=== PATIENT | female | born 1980 | race Caucasian/White ===

== ENCOUNTER → 2022-09-16 15:28 | Outpatient (CLI) | payer OTHER, SELFPAY ==
--- NOTE | 2022-09-16 15:29 | DI.MG.S_ITS ---
BILATERAL DIGITAL SCREENING MAMMOGRAM 3D/2D WITH CAD: 09/16/2022 CLINICAL: Routine screening. Baseline exam. Family history of breast cancer. No prior exams were available for comparison. Both breasts are heterogeneously dense, which may obscure small masses (category c / 51-75% glandular tissue). Current study was also evaluated with a Computer Aided Detection (CAD) system. No significant masses, calcifications, or other findings are seen in either breast. IMPRESSION: NEGATIVE There is no mammographic evidence of malignancy. A 1 year screening mammogram is recommended. Based on Tyrer-Cuzick model (a risk assessment model), the patient's lifetime risk is 21.6% and her 10 year risk is 2.8%. If a patient has an elevated risk, a more comprehensive evaluation should be considered and/or a referral to a genetic counselor. The [place] [employer], [employer] [place], and NCCN Guidelines advise the consideration of Breast MRI as an adjunct to screening mammography in patients whose Lifetime risk to develop breast cancer is 20% or higher. This exam was interpreted at Station ID: [id number]. NOTE: For mammograms, a report in lay terms will be sent to the patient. Approximately 15% of breast malignancies will not be visualized mammographically. In the management of a palpable breast mass, a negative mammogram must not discourage biopsy of a clinically suspicious lesion. Electronically Signed By: Dilcia gibson/maddy:09/16/2022 17:41:41 letter sent: Normal Exam ACR BI-RADS Category 1: Negative 3341F
== END ==
PROVIDERS: PCP Family Medicine; Referring Provider Family Medicine; Visit Provider Family Medicine
DX: Z12.31 Encounter for screening mammogram for malignant neoplasm of breast (principal); Z80.3 Family history of malignant neoplasm of breast
CPT/HCPCS: 77063; 77067

== ENCOUNTER → 2023-10-18 15:20 | Outpatient (CLI) | payer OTHER, SELFPAY ==
--- NOTE | 2023-10-18 | DI.MG.S_ITS ---
BILATERAL DIGITAL SCREENING MAMMOGRAM 3D/2D WITH CAD: 10/18/2023 CLINICAL: Routine screening. Family history of breast cancer. Comparison is made to exam dated: 09/16/2022 mammogram - [facility]. Both breasts are heterogeneously dense, which may obscure small masses (category c / 51-75% glandular tissue). Current study was also evaluated with a Computer Aided Detection (CAD) system. No significant masses, calcifications, or other findings are seen in either breast. There has been no significant interval change. IMPRESSION: NEGATIVE There is no mammographic evidence of malignancy. A 1 year screening mammogram is recommended. Based on Tyrer-Cuzick model (a risk assessment model), the patient's lifetime risk is 21.5% and her 10 year risk is 3.1%. If a patient has an elevated risk, a more comprehensive evaluation should be considered and/or a referral to a genetic counselor. The [place] [employer], [employer] [place] [employer], and NCCN Guidelines advise the consideration of Breast MRI as an adjunct to screening mammography in patients whose Lifetime risk to develop breast cancer is 20% or higher. This exam was interpreted at Station ID: [id number]. NOTE: For mammograms, a report in lay terms will be sent to the patient. Approximately 15% of breast malignancies will not be visualized mammographically. In the management of a palpable breast mass, a negative mammogram must not discourage biopsy of a clinically suspicious lesion. Electronically Signed By: Sam manrique/maddy:10/19/2023 07:26:25 letter sent: Normal Exam ACR BI-RADS Category 1: Negative 3341F
== END ==
PROVIDERS: PCP Family Medicine; Referring Provider Family Medicine; Visit Provider Family Medicine
DX: Z12.31 Encounter for screening mammogram for malignant neoplasm of breast (principal); Z80.3 Family history of malignant neoplasm of breast; R92.333 Mammographic heterogeneous density, bilateral breasts
CPT/HCPCS: 77063; 77067

== ENCOUNTER → 2024-05-10 12:17 | Outpatient (CLI) | payer OTHER, SELFPAY ==
--- NOTE | 2024-05-10 12:19 | DI.RAD.S_ITS ---
PROCEDURE: XR CHEST 2V INDICATIONS: dyspnea w/ exertion TECHNIQUE: 2 views of the chest were acquired. COMPARISON: None. FINDINGS: Surgical changes and devices: None. Lungs and pleura: Lungs are clear. No pleural effusions or pneumothorax. Mediastinum: Mediastinal contours are normal. Heart size is normal. Bones and chest wall: No suspicious bony abnormalities. Soft tissues appear unremarkable. IMPRESSION: No acute cardiopulmonary process. Dictated by: Thomas Victor M.D. on 05/10/2024 at 17:10 Approved by: Thomas Victor M.D. on 05/10/2024 at 17:11
[2024-05-10 13:18] LABS: Add Manual Diff / Slide Review NO; Basophils Absolute Auto 0 /uL (0-100); Basophils Percent Auto 0.5 % (0-2); Eosinophils Absolute Auto 0 /uL (0-450); Eosinophils Percent Auto 0.6 % (2-4); Hematocrit 41.6 % (36-46); Hemoglobin 14.2 g/dL (12.0-16.0); Lymphocytes Absolute Auto 1500 /uL (1100-4500); Lymphocytes Percent Auto 27.8 % (25-40); Mean Corpuscular HGB Conc 34.1 % (30-36); Mean Corpuscular Hemoglobin 31.3 PG (26-34); Mean Corpuscular Volume 91.8 fL (80-100); Monocytes Absolute Auto 400 /uL (0-900); Monocytes Percent Auto 7.2 % (3-14); Neutrophils Absolute Auto 3600 /uL (1500-7000); Neutrophils Percent Auto 63.9 % (50-75); Platelet Count 211 X10^3/uL (150-400); Red Blood Cell Count 4.53 X10^6/uL (4.0-5.2); Red Cell Distribution Width 13.3 % (11.6-14.8); White Blood Cell Count 5.6 X10^3/uL (4.5-11.0)
[2024-05-10 13:36] LABS: D Dimer 7185 ng/ml (<500)
[2024-05-10 13:44] LABS: Alanine Aminotransferase 19 IU/L (<35); Albumin 4.5 g/dL (3.5-5.0); Albumin Globulin Ratio 1.5 (1.0-2.8); Alkaline Phosphatase 66 U/L (38-126); Aspartate Aminotransferase 32 IU/L (14-36); BUN Creatinine Ratio 15.8 (6-22); Blood Urea Nitrogen 15 mg/dL (7-17); Carbon Dioxide 20 mmol/L (22-32); Chloride 107 mmol/L (98-107); Estimated Glomerular Filt Rate > 60 mL/min (>60); Globulin 3.1 g/dL (1.7-4.1); Glucose 98 mg/dL (70-100); Potassium 3.9 mmol/L (3.4-5.1); Sodium 136 mmol/L (137-145); Total Protein 7.6 g/dL (6.3-8.2)
[2024-05-10 13:53] LABS: HEMOLYSIS 74 (0-50)
== END ==
PROVIDERS: PCP Family Medicine; Referring Provider Family Medicine; Visit Provider Family Medicine
DX: R06.09 Other forms of dyspnea (principal); E28.2 Polycystic ovarian syndrome
CPT/HCPCS: 36415; 71046; 80053; 85025; 85379

== ENCOUNTER → 2024-05-13 15:53 | Outpatient (CLI) | payer OTHER, SELFPAY ==
--- NOTE | 2024-05-13 15:54 | DI.CT.S_ITS ---
PROCEDURE: CT ANGIO CHEST PE PROTOCOL INDICATIONS: dyspnea w/ exertion TECHNIQUE: After the administration of intravenous contrast, 2 mm thick sections acquired from the pulmonary apices to the posterior costophrenic angles. 3-dimensional maximum intensity projection (MIP) coronal and sagittal reformats were then acquired through the thorax. For radiation dose reduction, the following was used: automated exposure control, adjustment of mA and/or kV according to patient size. COMPARISON: None. FINDINGS: Image quality: Diagnostic Lungs and pleura: Mild lower lung atelectasis. Mild bronchial wall thickening. No drainable pleural effusions or dense airspace disease. Mediastinum, heart, and esophagus: Bilateral pulmonary emboli, extending from the segmental arteries on the left and the right pulmonary artery on the right. RV to LV ratio is greater than 1, suggestive of right heart strain. Mildly patulous distal esophagus. No pathologic lymph nodes by size criteria. Small amount soft tissue in the anterior mediastinum may represent thymic remnant. Chest wall and thyroid: Unremarkable Upper abdomen: No gross abnormality on these arterial phase images Bones: Unremarkable IMPRESSION: Bilateral pulmonary emboli, the most proximal portion is the right pulmonary artery. Mild bronchial wall thickening, possibly superimposed bronchitis. No dense airspace disease or pleural effusions. Dr. Bennett called to isotope technologist, who advised patient to proceed directly to the ED from the radiology waiting area Dictated by: George Bennett M.D. on 05/13/2024 at 16:33 Approved by: George Bennett M.D. on 05/13/2024 at 16:39
== END ==
PROVIDERS: PCP Family Medicine; Referring Provider Family Medicine; Visit Provider Family Medicine
DX: I26.99 Other pulmonary embolism without acute cor pulmonale; R06.09 Other forms of dyspnea
CPT/HCPCS: 71275

== ENCOUNTER 2024-05-13 16:43 | Observation (INO) | payer OTHER, SELFPAY ==
[2024-05-13] VITALS (14 sets, daily range): BP systolic 110–140; BP diastolic 72–90; PULSE 67–82; RESP 13–24; TEMP 36.1; O2SAT 97–100; BMI 25.8
--- NOTE | 2024-05-13 17:01 | EKG_ITS ---
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
[2024-05-13 17:11] LABS: Add Manual Diff / Slide Review NO; Basophils Absolute Auto 0 /uL (0-100); Basophils Percent Auto 0.4 % (0-2); Eosinophils Absolute Auto 100 /uL (0-450); Hematocrit 39.8 % (36-46); Hemoglobin 13.5 g/dL (12.0-16.0); Lymphocytes Absolute Auto 1700 /uL (1100-4500); Lymphocytes Percent Auto 31.7 % (25-40); Mean Corpuscular Hemoglobin 30.6 PG (26-34); Mean Corpuscular Volume 90.1 fL (80-100); Monocytes Absolute Auto 600 /uL (0-900); Monocytes Percent Auto 10.4 % (3-14); Neutrophils Absolute Auto 3000 /uL (1500-7000); Neutrophils Percent Auto 55.5 % (50-75); PTT Partial Thromboplastin Tim 30 SECONDS (25.1-36.5); Platelet Count 220 X10^3/uL (150-400); Red Blood Cell Count 4.42 X10^6/uL (4.0-5.2); Red Cell Distribution Width 13.3 % (11.6-14.8); White Blood Cell Count 5.4 X10^3/uL (4.5-11.0)
--- NOTE | 2024-05-13 17:15 | ED.CHESTPAIN ---
HPI - Chest Pain <Velvet Asencio DO - Last Filed: 05/14/24 07:15> General Chief Complaint: Shortness of Breath/Dyspnea Stated Complaint: SOB Time Seen by Provider: 05/13/24 17:00 Source: patient Mode of arrival: Wheelchair Limitations: no limitations Limitations: no limitations History of Present Illness HPI narrative: 43-year-old female on oral contraceptives and Relpax for migraines presents with complaint of exertional dyspnea. Patient had a CT as an outpatient was referred to the ED as positive for bilateral pulmonary emboli. Patient notes she has had symptoms for about 2 weeks. She denies any chest pain or pressure, no syncope, no fevers or chills. She has not short of breath at rest. She states she is noticed while she was running or going up stairs that she is little bit more short of breath or can not catch her breath afterwards. Denies any nausea or vomiting. No GI or urinary symptoms. No swelling in extremities. Patient states besides her oral contraceptive and Relpax she has not on any daily medications. No recent surgeries. No long distance travel. She does not use tobacco, no regular alcohol, no recreational drugs. Primary care is Dr. Esteves who had ordered her outpatient CT angio. She had been encouraged to stop her contraceptive as well. She states only family history is dad who had strokes but no other blood clots known. Related Data Home Medications Medication Instructions Recorded Confirmed Migralief 05/13/24 05/13/24 eletriptan 40 mg tablet (Relpax) 40 mg PO Q2-4H PRN Migraines 05/13/24 05/13/24 norethindrone acetate 1.5 1 tab PO DAILY 05/13/24 05/13/24 mg-ethinyl estradiol 30 mcg tablet (Roberto Carlos) Allergies Allergy/AdvReac Type Severity Reaction Status Date / Time No Known Drug Allergies Allergy Verified 05/13/24 16:46 Review of Systems <DO Rajendra Hill Last Filed: 05/14/24 07:15> Review of Systems ROS Unobtainable: All systems reviewed & are unremarkable except as noted in HPI and below Patient History <Velvet Asencio DO - Last Filed: 05/14/24 07:15> Medical History (Updated 05/13/24 @ 23:54 by Kobe Armstrong MD) Migraine Social History household members: spouse Smoking Status: Never smoker alcohol intake: current Smoking Status: Never smoker alcohol intake frequency: a few times a week Substance Use Type: does not use Exam <Velvet Asencio DO - Last Filed: 05/14/24 07:15> Narrative Exam Narrative: GENERAL: Alert and oriented x three, female in mild distress HEENT: Head normocephalic, atraumatic, EOMI, pupils reactive, face symmetric, moist mucous membranes NECK: Supple, full range of motion CARDIOVASCULAR: Regular rate and rhythm without murmurs, rubs or gallops. No JVD. No edema bilateral lower extremities. RESPIRATORY: Breath sounds equal bilaterally, no wheezes rales or rhonchi. Mild tachypnea on patient ambulated back to the, no tachypnea at rest. ABDOMEN: Soft, nontender. Normoactive bowel sounds all 4 quadrants. No guarding or rebound, rigidity, no mass : No CVA tenderness EXTREMITIES: Normal range of motion, no clubbing or edema. Neurovascularly intact NEUROLOGICAL: Cranial nerves II through XII grossly intact. Moving all extremities SKIN: Warm, dry, no petechiae, no rashes or lesions. Initial Vital Signs Initial Vital Signs: Vital Signs Temperature 97 F L 05/13/24 16:46 Pulse Rate 81 05/13/24 16:46 Respiratory Rate 22 05/13/24 16:46 Blood Pressure 127/90 05/13/24 16:46 Pulse Oximetry 100 05/13/24 16:46 Oxygen Delivery Method Room Air 05/13/24 16:46 <Velvet Reyes MD - Last Filed: 05/13/24 22:46> Initial Vital Signs Initial Vital Signs: Vital Signs Temperature 97 F L 05/13/24 16:46 Pulse Rate 81 05/13/24 16:46 Respiratory Rate 22 05/13/24 16:46 Blood Pressure 127/90 05/13/24 16:46 Pulse Oximetry 100 05/13/24 16:46 Oxygen Delivery Method Room Air 05/13/24 16:46 Course <Velvet Asencio DO - Last Filed: 05/14/24 07:15> Orders Ordered: Acetaminophen (Acetaminophen 325 Mg Tablet) 650 mg PO Q6H PRN PRN Reason: Fever/Mild Pain (1-3) Apixaban (Apixaban 5 Mg Tablet) 10 mg PO BID SMITA Stop: 05/20/24 21:01 Naloxone HCl (Naloxone 0.4 Mg/Ml Vial) 0.2 mg IV Q2MIN PRN PRN Reason: Opiate Reversal Discontinued Medications Enoxaparin Sodium (Enoxaparin 100 Mg/Ml Syringe) 75 mg 1 mg/kg (75 mg) SUBCUT NOW ONE Stop: 05/13/24 19:01 Last Admin: 05/13/24 19:15 Dose: 75 mg Documented By: MURRAY Vital Signs Vital signs: Vital Signs - 8 hr 05/13/24 16:46 05/13/24 16:59 05/13/24 17:00 Temperature 97 F L Pulse Rate 81 79 79 Respiratory Rate 22 21 22 Blood Pressure 127/90 Pulse Oximetry 100 Oxygen Delivery Method Room Air 05/13/24 17:28 05/13/24 17:28 05/13/24 17:30 Temperature Pulse Rate 67 Respiratory Rate 23 Blood Pressure 129/79 126/75 Pulse Oximetry 100 Oxygen Delivery Method 05/13/24 17:30 05/13/24 18:00 05/13/24 18:00 Temperature Pulse Rate 72 69 Respiratory Rate 20 18 Blood Pressure 116/75 Pulse Oximetry 98 97 Oxygen Delivery Method 05/13/24 18:30 05/13/24 18:30 05/13/24 19:00 Temperature Pulse Rate 74 Respiratory Rate 18 Blood Pressure 119/81 112/77 Pulse Oximetry 100 Oxygen Delivery Method 05/13/24 19:00 05/13/24 19:30 05/13/24 19:30 Temperature Pulse Rate 68 78 Respiratory Rate 16 20 Blood Pressure 140/84 Pulse Oximetry 100 99 Oxygen Delivery Method Room Air 05/13/24 20:00 05/13/24 20:00 05/13/24 20:30 Temperature Pulse Rate 78 Respiratory Rate 13 Blood Pressure 131/78 137/80 Pulse Oximetry 98 Oxygen Delivery Method Room Air 05/13/24 20:30 05/13/24 21:00 05/13/24 21:00 Temperature Pulse Rate 73 82 Respiratory Rate 24 20 Blood Pressure 139/75 Pulse Oximetry 99 98 Oxygen Delivery Method Room Air 05/13/24 21:30 05/13/24 21:30 Temperature Pulse Rate 77 Respiratory Rate 21 Blood Pressure 110/77 Pulse Oximetry 97 Oxygen Delivery Method Room Air <Velvet Reyes MD - Last Filed: 05/13/24 22:46> Orders Ordered: Acetaminophen (Acetaminophen 325 Mg Tablet) 650 mg PO Q6H PRN PRN Reason: Fever/Mild Pain (1-3) Apixaban (Apixaban 5 Mg Tablet) 10 mg PO BID SMITA Stop: 05/20/24 21:01 Naloxone HCl (Naloxone 0.4 Mg/Ml Vial) 0.2 mg IV Q2MIN PRN PRN Reason: Opiate Reversal Discontinued Medications Enoxaparin Sodium (Enoxaparin 100 Mg/Ml Syringe) 75 mg 1 mg/kg (75 mg) SUBCUT NOW ONE Stop: 05/13/24 19:01 Last Admin: 05/13/24 19:15 Dose: 75 mg Documented By: MURRAY Vital Signs Vital signs: Vital Signs - 8 hr 05/13/24 16:46 05/13/24 16:59 05/13/24 17:00 Temperature 97 F L Pulse Rate 81 79 79 Respiratory Rate 22 21 22 Blood Pressure 127/90 Pulse Oximetry 100 Oxygen Delivery Method Room Air 05/13/24 17:28 05/13/24 17:28 05/13/24 17:30 Temperature Pulse Rate 67 Respiratory Rate 23 Blood Pressure 129/79 126/75 Pulse Oximetry 100 Oxygen Delivery Method 05/13/24 17:30 05/13/24 18:00 05/13/24 18:00 Temperature Pulse Rate 72 69 Respiratory Rate 20 18 Blood Pressure 116/75 Pulse Oximetry 98 97 Oxygen Delivery Method 05/13/24 18:30 05/13/24 18:30 05/13/24 19:00 Temperature Pulse Rate 74 Respiratory Rate 18 Blood Pressure 119/81 112/77 Pulse Oximetry 100 Oxygen Delivery Method 05/13/24 19:00 05/13/24 19:30 05/13/24 19:30 Temperature Pulse Rate 68 78 Respiratory Rate 16 20 Blood Pressure 140/84 Pulse Oximetry 100 99 Oxygen Delivery Method Room Air 05/13/24 20:00 05/13/24 20:00 05/13/24 20:30 Temperature Pulse Rate 78 Respiratory Rate 13 Blood Pressure 131/78 137/80 Pulse Oximetry 98 Oxygen Delivery Method Room Air 05/13/24 20:30 05/13/24 21:00 05/13/24 21:00 Temperature Pulse Rate 73 82 Respiratory Rate 24 20 Blood Pressure 139/75 Pulse Oximetry 99 98 Oxygen Delivery Method Room Air 05/13/24 21:30 05/13/24 21:30 Temperature Pulse Rate 77 Respiratory Rate 21 Blood Pressure 110/77 Pulse Oximetry 97 Oxygen Delivery Method Room Air MDM - Chest Pain <Velvet Asencio, - Last Filed: 05/14/24 07:15> Lab Data 05/13/24 16:50 05/13/24 16:50 Labs: Lab Results 05/13/24 Range/Units 16:50 WBC 5.4 (4.5-11.0) X10^3/uL RBC 4.42 (4.0-5.2) X10^6/uL Hgb 13.5 (12.0-16.0) g/dL Hct 39.8 (36-46) % MCV 90.1 (80-100) fL MCH 30.6 (26-34) PG MCHC 34.0 (30-36) % RDW 13.3 (11.6-14.8) % Plt Count 220 (150-400) X10^3/uL Neut % (Auto) 55.5 (50-75) % Lymph % (Auto) 31.7 (25-40) % Ocean % (Auto) 10.4 (3-14) % Eos % (Auto) 2.0 (2-4) % Baso % (Auto) 0.4 (0-2) % Neut # (Auto) 3000 (9728-3279) /uL Lymph # (Auto) 1700 (6281-7682) /uL Ocean # (Auto) 600 (0-900) /uL Eos # (Auto) 100 (0-450) /uL Baso # (Auto) 0 (0-100) /uL PT 11.0 (9.4-12.5) SECONDS INR 1.0 (0.9-1.3) APTT 30 (25.1-36.5) SECONDS Sodium 137 (137-145) mmol/L Potassium 4.0 (3.4-5.1) mmol/L Chloride 108 H (98-107) mmol/L Carbon Dioxide 22 (22-32) mmol/L BUN 19 H (7-17) mg/dL Creatinine 0.94 (0.52-1.04) mg/dL Estimated GFR > 60 (>60) mL/min BUN/Creatinine Ratio 20.2 (6-22) Glucose 96 (70-100) mg/dL Calcium 9.4 (8.4-10.2) mg/dL Total Bilirubin 0.7 (0.2-1.3) mg/dL AST 27 (14-36) IU/L ALT 16 (<35) IU/L Alkaline Phosphatase 80 (38-126) U/L Total Creatine Kinase 83 (30-135) U/L Troponin I < 0.012 (0.01-0.034) ng/mL NT-Pro-B Natriuret Pep 81 (<125) pg/mL Total Protein 7.4 (6.3-8.2) g/dL Albumin 4.2 (3.5-5.0) g/dL Globulin 3.2 (1.7-4.1) g/dL Albumin/Globulin Ratio 1.3 (1.0-2.8) Lipase 98 (23-300) U/L Imaging Data CT scan - chest: Radiologist's Impression: Outpatient CT angio shows bilateral pulmonary emboli most proximal portions in the right pulmonary artery extending from the segmental arteries in the left in the pulmonary artery on the right RV to LV ratio is greater than 1 suggest right heart strain. Mild patulous distal esophagus no pathologic lymph nodes small amount of soft tissue anterior mediastinum may represent thymic remnant. Mild lower lobe atelectasis. Mild bronchial wall thickening, no drainable pleural effusions or dense airspace. ECG Data Attestation: I personally reviewed and interpreted this ECG as follows: Prior ECG tracings: not available for review Interpretation: Sinus rhythm incomplete right bundle-branch, patient has rate of 77 [place] 112 QRS of 94 QTC of 430. Patient does not have prior for comparison. MDM Narrative Medical decision making narrative: Show a white count of 5.4 hemoglobin of 13, platelets of 220. INR 1. Electrolytes show chloride of 108 sodium is normal potassium normal BUN 19 CO2 is 22 creatinine 0.94, CK is 83 troponin negative. BNP is negative EKG shows incomplete right bundle-branch, no priors for comparison but could be related to right heart strain appreciated on patient's CT angio which has not RV to LV ratio greater than 1 suggestive of right strain. Patient's vitals are overall appropriate, she has been tolerating her symptoms quite well. Has potential exacerbating factor being on oral contraceptives but no other provoking factors noted. Patient signed out to Dr. Reyes while awaiting consultation to evaluate for patient would be interventional candidate. She has right strain according to CT imaging and EKG but normal labs vitals are overall appropriate she has had dyspnea on exertion but otherwise been feeling well. Patient has been hemodynamically stable. Dr. Reyes -patient given subcu Lovenox for anticoagulation. Spoke with Dr. Willett of [facility] to see if patient is interventional candidate. Based on imaging and overall reassuring vitals without need for supplemental oxygen patient can likely stay at [facility], but will reach out to Cardiology to see if patient is a candidate. 2030 -rediscussed with Dr. Willett. Patient can be kept at [facility], not currently a candidate for interventional services, but did recommend admission for echocardiogram and duplex ultrasonography of the legs. If patient's hemodynamic status changes then can reach out again to [facility] to reassess need for thrombectomy. Discussed case with Dr. Armstrong, who accepts patient to his service. <Velvet Reyes MD - Last Filed: 05/13/24 22:46> Lab Data Labs: Lab Results 05/13/24 Range/Units 16:50 WBC 5.4 (4.5-11.0) X10^3/uL RBC 4.42 (4.0-5.2) X10^6/uL Hgb 13.5 (12.0-16.0) g/dL Hct 39.8 (36-46) % MCV 90.1 (80-100) fL MCH 30.6 (26-34) PG MCHC 34.0 (30-36) % RDW 13.3 (11.6-14.8) % Plt Count 220 (150-400) X10^3/uL Neut % (Auto) 55.5 (50-75) % Lymph % (Auto) 31.7 (25-40) % Ocean % (Auto) 10.4 (3-14) % Eos % (Auto) 2.0 (2-4) % Baso % (Auto) 0.4 (0-2) % Neut # (Auto) 3000 (1408-6326) /uL Lymph # (Auto) 1700 (1824-9867) /uL Ocean # (Auto) 600 (0-900) /uL Eos # (Auto) 100 (0-450) /uL Baso # (Auto) 0 (0-100) /uL PT 11.0 (9.4-12.5) SECONDS INR 1.0 (0.9-1.3) APTT 30 (25.1-36.5) SECONDS Sodium 137 (137-145) mmol/L Potassium 4.0 (3.4-5.1) mmol/L Chloride 108 H (98-107) mmol/L Carbon Dioxide 22 (22-32) mmol/L BUN 19 H (7-17) mg/dL Creatinine 0.94 (0.52-1.04) mg/dL Estimated GFR > 60 (>60) mL/min BUN/Creatinine Ratio 20.2 (6-22) Glucose 96 (70-100) mg/dL Calcium 9.4 (8.4-10.2) mg/dL Total Bilirubin 0.7 (0.2-1.3) mg/dL AST 27 (14-36) IU/L ALT 16 (<35) IU/L Alkaline Phosphatase 80 (38-126) U/L Total Creatine Kinase 83 (30-135) U/L Troponin I < 0.012 (0.01-0.034) ng/mL NT-Pro-B Natriuret Pep 81 (<125) pg/mL Total Protein 7.4 (6.3-8.2) g/dL Albumin 4.2 (3.5-5.0) g/dL Globulin 3.2 (1.7-4.1) g/dL Albumin/Globulin Ratio 1.3 (1.0-2.8) Lipase 98 (23-300) U/L [facility] Narrative Medical decision making narrative: Show a white count of 5.4 hemoglobin of 13, platelets of 220. INR 1. Electrolytes show chloride of 108 sodium is normal potassium normal BUN 19 CO2 is 22 creatinine 0.94, CK is 83 troponin negative. BNP is negative EKG shows incomplete right bundle-branch, no priors for comparison but could be related to right heart strain appreciated on patient's CT angio which has not RV to LV ratio greater than 1 suggestive of right strain. Patient's vitals are overall appropriate, she has been tolerating her symptoms quite well. Has potential exacerbating factor being on oral contraceptives but no other provoking factors noted. Patient signed out to Dr. Reyes while awaiting consultation to evaluate for patient would be interventional candidate. She has right strain according to CT imaging and EKG but normal labs vitals are overall appropriate she has been sick. Dr. Reyes -patient given subcu Lovenox for anticoagulation. Spoke with Dr. Willett of [facility] to see if patient is interventional candidate. Based on imaging and overall reassuring vitals without need for supplemental oxygen patient can likely stay at [facility], but will reach out to Cardiology to see if patient is a candidate. 2030 -rediscussed with Dr. Willett. Patient can be kept at [facility], not currently a candidate for interventional services, but did recommend admission for echocardiogram and duplex ultrasonography of the legs. If patient's hemodynamic status changes then can reach out again to [facility] to reassess need for thrombectomy. Discussed case with Dr. Armstrong, who accepts patient to his service. Critical Care Time <Velvet Reyes MD - Last Filed: 05/13/24 22:46> Critical Care Time Critical Care Time: Yes Total Critical Care Time: 34 Attestation: Bilateral pulmonary embolism with evidence of right heart strain on CT scan requiring discussion with embolectomy team and admission for further treatment. Discharge Plan Departure Patient Disposition: Admitted as Observation Clinical Impression: Bilateral pulmonary embolism Admit Date/Time: 05/13/24 21:41 Admit Provider: Kobe De La Cruz
[2024-05-13 17:18] LABS: Alanine Aminotransferase 16 IU/L (<35); Albumin 4.2 g/dL (3.5-5.0); Albumin Globulin Ratio 1.3 (1.0-2.8); Alkaline Phosphatase 80 U/L (38-126); Aspartate Aminotransferase 27 IU/L (14-36); BUN Creatinine Ratio 20.2 (6-22); Bilirubin Total 0.7 mg/dL (0.2-1.3); Blood Urea Nitrogen 19 mg/dL (7-17); Calcium 9.4 mg/dL (8.4-10.2); Carbon Dioxide 22 mmol/L (22-32); Chloride 108 mmol/L (98-107); Creatine Kinase 83 U/L (30-135); Estimated Glomerular Filt Rate > 60 mL/min (>60); Globulin 3.2 g/dL (1.7-4.1); Glucose 96 mg/dL (70-100); HEMOLYSIS 32 (0-50); Lipase 98 U/L (23-300); Sodium 137 mmol/L (137-145); Total Protein 7.4 g/dL (6.3-8.2)
[2024-05-13 17:28] LABS: NT-proBNP (BNP-Adult 18+) 81 pg/mL (<125); Troponin I < 0.012 ng/mL (0.01-0.034)
[2024-05-13] MEDS: ENOXAPARIN 100 MG/ML SYRINGE 75 MG SUBCUT (19:15)
--- NOTE | 2024-05-13 23:45 | PM.HP.1 ---
History of Present Illness History of Present Illness Date Patient Seen: 05/13/24 Chief complaint: SOB Narrative: 43 y/o with PMH of migraine, on oral contraceptive, developed exertional dyspnea 2 weeks ago, initially with running and somewhat worsened over the past week. Seen in PCPs office and referred to outside CTA chest that today showed b/l PE. On presentation to the ED she does not appear uncomfortable, is not hypoxemic, doesn't have chest pain, cough or hemoptysis. At rest she is not even short of breath. Had mg/kg Lovenox and placed in observation. [facility] Medical History (Updated 05/13/24 @ 23:54 by Kobe Armstrong MD) Migraine Social History household members: spouse Smoking Status: Never smoker alcohol intake: current Meds Home Medications and Allergies Home Medications Medication Instructions Recorded Confirmed Type Migralief 05/13/24 05/13/24 History eletriptan 40 mg tablet (Relpax) 40 mg PO Q2-4H PRN Migraines 05/13/24 05/13/24 History norethindrone acetate 1.5 1 tab PO DAILY 05/13/24 05/13/24 History mg-ethinyl estradiol 30 mcg tablet (Roberto Carlos) Allergies Allergy/AdvReac Type Severity Reaction Status Date / Time No Known Drug Allergies Allergy Verified 05/13/24 16:46 Review of Systems Constitutional Comments: w/o fever, chills, weight changes ENT Comments: w/o congestion Cardiovascular Comments: w/o palpitations or chest pain Respiratory Comments: short of breath with activity Gastrointestinal Comments: w/o complaints Genitourinary Comments: w/o complaints Musculoskeletal Comments: w/o swelling or tenderness of legs Exam Vital Signs (past 8 hours): - 05/13/24 16:46 05/13/24 16:59 05/13/24 17:00 Temperature 97 F L Pulse Rate 81 79 79 Respiratory Rate 22 21 22 Blood Pressure 127/90 Pulse Oximetry 100 Oxygen Delivery Method Room Air 05/13/24 17:28 05/13/24 17:28 05/13/24 17:30 Temperature Pulse Rate 67 Respiratory Rate 23 Blood Pressure 129/79 126/75 Pulse Oximetry 100 Oxygen Delivery Method 05/13/24 17:30 05/13/24 18:00 05/13/24 18:00 Temperature Pulse Rate 72 69 Respiratory Rate 20 18 Blood Pressure 116/75 Pulse Oximetry 98 97 Oxygen Delivery Method 05/13/24 18:30 05/13/24 18:30 05/13/24 19:00 Temperature Pulse Rate 74 Respiratory Rate 18 Blood Pressure 119/81 112/77 Pulse Oximetry 100 Oxygen Delivery Method 05/13/24 19:00 05/13/24 19:30 05/13/24 19:30 Temperature Pulse Rate 68 78 Respiratory Rate 16 20 Blood Pressure 140/84 Pulse Oximetry 100 99 Oxygen Delivery Method Room Air 05/13/24 20:00 05/13/24 20:00 05/13/24 20:30 Temperature Pulse Rate 78 Respiratory Rate 13 Blood Pressure 131/78 137/80 Pulse Oximetry 98 Oxygen Delivery Method Room Air 05/13/24 20:30 05/13/24 21:00 05/13/24 21:00 Temperature Pulse Rate 73 82 Respiratory Rate 24 20 Blood Pressure 139/75 Pulse Oximetry 99 98 Oxygen Delivery Method Room Air 05/13/24 21:30 05/13/24 21:30 05/13/24 22:00 Temperature Pulse Rate 77 Respiratory Rate 21 Blood Pressure 110/77 112/72 Pulse Oximetry 97 Oxygen Delivery Method Room Air 05/13/24 22:00 Temperature Pulse Rate 71 Respiratory Rate 19 Blood Pressure Pulse Oximetry 97 Oxygen Delivery Method Room Air Oxygen Delivery Method Room Air Const Other: sitting in bed in no distress HENMT Other: normocephalic Resp Other: normal respiratory effort at rest Cardio Other: RRR, ZHANE at midsternum Skin Other: w/o rashes Extrem Other: w/o swelling Psych Other: appropriate mood Objective Labs 05/13/24 16:50 05/13/24 16:50 Labs: Laboratory Results - last 24 hr 05/13/24 16:50 WBC 5.4 RBC 4.42 Hgb 13.5 Hct 39.8 MCV 90.1 MCH 30.6 MCHC 34.0 RDW 13.3 Plt Count 220 Neut % (Auto) 55.5 Lymph % (Auto) 31.7 [place] % (Auto) 10.4 Eos % (Auto) 2.0 Baso % (Auto) 0.4 Neut # (Auto) 3000 Lymph # (Auto) 1700 [place] # (Auto) 600 Eos # (Auto) 100 Baso # (Auto) 0 PT 11.0 INR 1.0 APTT 30 Sodium 137 Potassium 4.0 Chloride 108 H Carbon Dioxide 22 BUN 19 H Creatinine 0.94 Estimated GFR > 60 BUN/Creatinine Ratio 20.2 Glucose 96 Calcium 9.4 Total Bilirubin 0.7 AST 27 ALT 16 Alkaline Phosphatase 80 Total Creatine Kinase 83 Troponin I < 0.012 NT-Pro-B Natriuret Pep 81 Total Protein 7.4 Albumin 4.2 Globulin 3.2 Albumin/Globulin Ratio 1.3 Lipase 98 Assessment & Plan Assessment and plan (1) Bilateral pulmonary embolism: Status: Acute (2) Migraine: Status: Acute Assessment & Plan narrative: Acute Bilateral Pulmonary Embolism - estrogen-containing control, which is the only identifiable risk factor apart from several hour long drive to [place] 3 weeks ago - w/o leg swelling or tenderness, venous duplex pending - echocardiogram pending to assess RV function - thrombophilia tests pending - given Lovenox, to continue with Eliquis Time-Based Coding :: [TOTAL MINUTES] spent with patient and on the chart (including review of chart, obtaining history, exam, reviewing outside data, placing orders, documenting exam and treatment plan, and counseling patient) on [DATE]. Quality VTE Deep Vein Thrombosis/Pulmonary Embolism Present on Admission: Yes
--- NOTE | 2024-05-13 23:54 | DI.ECHO.S_ITS ---
Version: 1 Study ID: [id number] [place] [id number] Name: AARON SIMMONS Study Date: 05/14/2024, 9: 43 AM : 1980 Gender: Female Height: 65 in Age: 43 Years Weight: 160 lb BSA: 1.80 mA? Ordering: MADHAV TOMLINSON MD Referring: MADHAV TOMLINSON MD Clinician: Jh Manuel Reason For Study: PE History: Summary Statements The left ventricle is normal in size and wall thickness. Left ventricular systolic function appears normal without focal wall motion abnormalities. The ejection fraction is estimated to be 55-60%. Diastolic parameters suggest probable normal left ventricular diastolic function and normal filling pressures. The right ventricle is mildly dilated. The right ventricular systolic function is normal. Borderline left atrial enlargement. There is no significant valvular heart disease. The aortic root is normal size. Procedure: A two-dimensional transthoracic echocardiogram with color flow and Doppler was performed. The study quality was technically adequate. There is no prior echocardiogram noted for this patient. The heart rate ranged between 62-72 bpm during the study. Left Ventricle: Diastolic parameters suggest probable normal left ventricular diastolic function and normal filling pressures. Left ventricular systolic function appears normal without focal wall motion abnormalities. The ejection fraction is estimated to be 55-60%. The left ventricle is normal in size and wall thickness. Right Ventricle: The right ventricular systolic function is normal. The right ventricle is mildly dilated. Atria: The interatrial septum grossly appears intact with no obvious evidence for an atrial septal defect. Borderline left atrial enlargement. The right atrium is mildly dilated. Mitral Valve: There is trace mitral regurgitation. There is no mitral valve stenosis. The mitral valve is normal. Aortic Valve: No aortic regurgitation is present. There is no aortic valve stenosis. The aortic valve is trileaflet. Tricuspid Valve: No tricuspid regurgitation. There is no tricuspid stenosis. The tricuspid valve is normal. Pulmonic Valve: There is a trace or physiologic amount of pulmonic regurgitation. There is no significant valvular heart disease. There is no pulmonic valvular stenosis. The pulmonic valve is not well visualized. Great Vessels: The dimensions of the ascending aorta are normal. The aortic root is normal size. The IVC is dilated (diameter is greater than 2.1 cm) yet it collapses greater than 50% with a sniff. This suggests a right atrial pressure of 8 mm Hg. Pericardium/ Pleura: There is no pericardial effusion. There is no pleural effusion. 2D and M-Mode Measurements and Calculations LVIDd: 4.8 cm LVOT diam: 2.6 cm LVIDs: 3.5 cm Ao root diam: 3.3 cm IVSd: 0.98 cm asc Aorta Diam: 3.4 cm LVPWd: 0.86 cm Ao Arch Diam (Prox Trans): 2.27 cm LV diaz. diameter/BSA (cm/m^2): 2.6 LV sys. diameter/BSA (cm/m^2): 1.94 TAPSE: 2.7 cm LA A4 area: 18.6 junior systems analyst? IVC diam: 2.32 cm LA A2 area: 19.4 junior systems analyst? RA area: 18.7 junior systems analyst? LA length (vol): 5.4 cm RA long axis: 4.8 cm LA vol: 56.2 ml RA vol: 61.2 ml LA vol index: 31.3 ml/mA? RA : 34.0 ml/mA? Doppler Measurements and Calculations Ao V2 max: 100.3 cm/sec LVOT Max Lucas: 81.8 cm/sec Ao V2 mean: 68.3 cm/sec LV V1 max P.7 mmHg Ao V2 VTI: 19.0 cm LV V1 VTI: 19.1 cm Ao max P.0 mmHg SV(LVOT): 100.7 ml Ao mean P.08 mmHg MACRINA(I,D): 5.3 junior systems analyst? MACRINA(V,D): 4.3 junior systems analyst? MACRINA indexed to BSA (cm^2/m^2): 2.9 sev ratio: 1.00 MV E max lucas: 73.4 cm/sec MV dec time: 0.20 sec MV A max lucas: 38.2 cm/sec MV E/A: 1.92 Med Peak E' Lucas: 9.4 cm/sec Lat Peak E' Lucas: 12.3 cm/sec E/e' average: 6.9 PA V2 max: 104.2 cm/sec PA mean P.09 mmHg Electronically signed by: Chris Andre 06/21/2024, 6: 03 PM
--- NOTE | 2024-05-14 00:54 | PC.NURSE ---
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 Patient is AxOx4, VSS, O2 saturation 98% on RA. Denies chest or generalized pain, nausea, or SOB at rest. States that she feels SOB when running or walking up stairs. Ambulatory with SBA. Lung sounds are clear. Cont tele & p/ox in place. Educated patient erosion control coordinator-light. Plan of care ongoing.
[2024-05-14 06:00] VITALS: BP 101/67; PULSE 68; RESP 18; TEMP 36.2; O2SAT 98
[2024-05-14 07:28] LABS: Add Manual Diff / Slide Review NO; Basophils Absolute Auto 0 /uL (0-100); Basophils Percent Auto 0.5 % (0-2); Eosinophils Absolute Auto 100 /uL (0-450); Hematocrit 40.4 % (36-46); Hemoglobin 13.8 g/dL (12.0-16.0); Lymphocytes Absolute Auto 1500 /uL (1100-4500); Lymphocytes Percent Auto 44.2 % (25-40); Mean Corpuscular Hemoglobin 30.8 PG (26-34); Mean Corpuscular Volume 90.4 fL (80-100); Monocytes Absolute Auto 400 /uL (0-900); Monocytes Percent Auto 10.6 % (3-14); Neutrophils Absolute Auto 1400 /uL (1500-7000); Neutrophils Percent Auto 42.7 % (50-75); Platelet Count 199 X10^3/uL (150-400); Red Blood Cell Count 4.47 X10^6/uL (4.0-5.2); Red Cell Distribution Width 13.2 % (11.6-14.8); White Blood Cell Count 3.4 X10^3/uL (4.5-11.0)
[2024-05-14 07:37] VITALS: BP 95/74; PULSE 68; RESP 18; TEMP 36.6; O2SAT 100
[2024-05-14 08:14] LABS: BUN Creatinine Ratio 15.8 (6-22); Blood Urea Nitrogen 16 mg/dL (7-17); Calcium 9.2 mg/dL (8.4-10.2); Carbon Dioxide 23 mmol/L (22-32); Chloride 110 mmol/L (98-107); Estimated Glomerular Filt Rate > 60 mL/min (>60); Glucose 97 mg/dL (70-100); HEMOLYSIS < 15 (0-50); Potassium 4.2 mmol/L (3.4-5.1); Sodium 140 mmol/L (137-145)
[2024-05-14] MEDS: APIXABAN 5 MG TABLET 10 MG PO (09:11)
--- NOTE | 2024-05-14 11:00 | DI.US.S_ITS ---
PROCEDURE: US PERIPH VENOUS LOW EXTREM BI INDICATIONS: PE, suspected DVT TECHNIQUE: Real-time imaging, as well as color and pulse Doppler interrogation, were performed of the deep veins of both legs from the inguinal ligament to the popliteal fossa, with documentation of the visualized calf veins. COMPARISON: None. FINDINGS: Right: The common femoral, femoral, popliteal, and the visualized calf veins are normally compressible, and free of intraluminal thrombus. Color and pulse Doppler demonstrate normal phasic intravascular flow. There is normal augmentation response to distal compression maneuver. Left: The common femoral, femoral, popliteal, and the visualized calf veins are normally compressible, and free of intraluminal thrombus. Color and pulse Doppler demonstrate normal phasic intravascular flow. There is normal augmentation response to distal compression maneuver. IMPRESSION: No findings of deep venous thrombosis in either lower extremity. Dictated by: Warren Balbuena M.D. on 05/14/2024 at 8:55 Approved by: Warren Balbuena M.D. on 05/14/2024 at 8:55
[2024-05-14 11:20] VITALS: BP 116/82; PULSE 73; RESP 16; TEMP 36.8; O2SAT 98
--- NOTE | 2024-05-14 14:01 | P.DS_ITS ---
History of Present Illness History of Present Illness Chief complaint: SOB Narrative: From H&P: 43 y/o with PMH of migraine, on oral contraceptive, developed exertional dyspnea 2 weeks ago, initially with running and somewhat worsened over the past week. Seen in PCPs office and referred to outside CTA chest that today showed b/l PE. On presentation to the ED she does not appear uncomfortable, is not hypoxemic, doesn't have chest pain, cough or hemoptysis. At rest she is not even short of breath. Had mg/kg Lovenox and placed in observation. Discharge Providers Provider Date of admission: 05/13/24 21:41 Discharge Date: 05/14/24 Primary care physician: Rosa Esteves Consults: None. Discharge provider: Gustavo Miller MD Summary Hospital Course Discharge Diagnosis: 1. Pulmonary embolism, present on admission and active. 2. Migraine headaches, present on admission and active. 3. PCOS, present on admission and stable. Hospital Course: She was admitted with 2 weeks of subacute dyspnea on exertion and a CT scan outpatient revealed bilateral pulmonary emboli. Leg duplex ultrasound was negative and an echo revealed no evidence of severe right heart strain. She was started on Eliquis in the morning of May 14 it was not require oxygen. Her symptoms are only when running. She was an avid runner running 6-10 miles at a time. She 1st noted symptoms while running in that her capacity was different from normal. She will follow up with her provider within the next week in his asked to review alternatives to OCPs which may increase her risk of clots. In addition, she was a thrombophilia panel which is pending which can be reviewed as well. Status at Discharge Cognitive/behavioral status at discharge: oriented Functional status at discharge: independent ambulation Overall status at discharge: patient is back to baseline Time Spent with Patient Time spent: Greater than 30 minutes Exam Vital Signs (past 8 hours): - 05/14/24 07:37 05/14/24 11:20 Temperature 97.8 F 98.3 F Pulse Rate 68 73 Respiratory Rate 18 16 Blood Pressure 95/74 116/82 Pulse Oximetry 100 98 Oxygen Flow Rate 0 0 Oxygen Delivery Method Room Air Oxygen Flow Rate 0 Narrative Exam Narrative: NAD, alert and oriented. Fluent speech. Lungs are clear, normal rate and effort. Heart is regular, no murmur gallop or rub. Abdomen is soft, non distended. Extremities are free of edema. Objective Imaging Multiple studies:: Radiologist's impression: Chest CT angiogram: Bilateral pulmonary emboli, the most proximal portion is the right pulmonary artery. Mild bronchial wall thickening, possibly superimposed bronchitis. No dense airspace disease or pleural effusions. Chest x-ray: No acute cardiopulmonary process. Leg vascular ultrasound: No findings of deep venous thrombosis in either lower extremity. Labs 05/14/24 06:55 05/14/24 06:55 Labs: Laboratory Results - last 24 hr 05/13/24 05/14/24 16:50 06:55 WBC 5.4 3.4 L RBC 4.42 4.47 Hgb 13.5 13.8 Hct 39.8 40.4 MCV 90.1 90.4 MCH 30.6 30.8 MCHC 34.0 34.0 RDW 13.3 13.2 Plt Count 220 199 Neut % (Auto) 55.5 42.7 L Lymph % (Auto) 31.7 44.2 H [place] % (Auto) 10.4 10.6 Eos % (Auto) 2.0 2.0 Baso % (Auto) 0.4 0.5 Neut # (Auto) 3000 1400 L Lymph # (Auto) 1700 1500 [place] # (Auto) 600 400 Eos # (Auto) 100 100 Baso # (Auto) 0 0 PT 11.0 INR 1.0 APTT 30 Sodium 137 140 Potassium 4.0 4.2 Chloride 108 H 110 H Carbon Dioxide 22 23 BUN 19 H 16 Creatinine 0.94 1.01 Estimated GFR > 60 > 60 BUN/Creatinine Ratio 20.2 15.8 Glucose 96 97 Calcium 9.4 9.2 Total Bilirubin 0.7 AST 27 ALT 16 Alkaline Phosphatase 80 Total Creatine Kinase 83 Troponin I < 0.012 NT-Pro-B Natriuret Pep 81 Total Protein 7.4 Albumin 4.2 Globulin 3.2 Albumin/Globulin Ratio 1.3 Lipase 98 [facility] Medical History Migraine PCOS (polycystic ovarian syndrome) Migraines (~1994) Ovarian cyst (~2010) Infertility (~2010) Surgical History Hx of LASIK [place] teeth extracted Social History marital status: household members: spouse pets and animals: Yes occupational status: unemployed 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 Pulmonary embolism, present on admission and active. 2. Migraine headaches, present on admission and active. 3. PCOS, present on admission and stable. Plan of Treatment: Discharge home with the apixaban 10 b.i.d. for 1 week and then 5 b.i.d.. Follow up with PCP within a week to review thrombophilia laboratory results and discuss OCP risks and benefits. Discharge Plan Discharge Plan Patient Disposition: Home Provider Discharge Comment: Stable for discharge home on oral anticoagulation for pulmonary embolism. Thrombophilia panel is pending. Close follow up with PCP to review this panel and her progress. Defer discussion of OCPs with her provider. These are known to slightly increase the risk of DVT and pulmonary embolism. Discharge orders & Medications Prescriptions: New apixaban 5 mg (74 tabs) tablets,dose pack See Rx Instructions .ROUTE .COMPLEX Qty: 74 0RF Rx Instructions: orally per package directions 10 mg BID 7 days and 5 mg BID thereafter. Continued eletriptan [Relpax] 40 mg tablet 40 mg PO .COMPLEX MDD 80 mg day Qty: 30 1RF Rx Instructions: 40 mg PO ; may repeat if headache continues 2 hours after first dose. norethindrone ac-eth estradiol [Roberto Carlos 1.5/30 (21)] 1.5-30 mg-mcg tablet 1 tab PO DAILY Qty: 63 0RF eletriptan [Relpax] 40 mg Tablet 40 mg PO Q2-4H PRN (Reason: Migraines) Rx Instructions: do not exceed 2 doses per 24 hrs norethindrone ac-eth estradiol [Roberto Carlos 1.5/30 (21)] 1.5-30 mg-mcg tablet 1 tab PO DAILY Patient Comments: [NO ORIGINAL SIG] (DME) Migralief 1 tablet Rx Instructions: 2 pills daily. OTC hormone supplement for migrains Discontinued ibuprofen 200 mg capsule 200 mg PO QID PRN Medication counseling provided by Pharmacist: No Discharge Health Status Multidrug resistant organism: No MDRO Diet/Activity/Treatments Diet: Regular Visit Report/Discharge Packet Instructions: DI for Pulmonary Embolism Stand Alone Forms: Patient Portal/API Discharge Data Attending Provider: Kobe De La Cruz Admit Date/Time: 05/13/24 21:41 Quality VTE Deep Vein Thrombosis/Pulmonary Embolism Present on Admission: Yes MIPS - DC The patient has a history of heart transplant or Left Ventricular Assist Device (LVAD). If yes, STOP here.: No The patient has current or prior documentation of left ventricular ejection fraction (LVEF) less than or equal to 40%, or moderate or severely depressed left ventricular systolic function.: No
--- NOTE | 2024-05-14 15:22 | CM.DANOTE ---
Initial DCP Assessment Visit Note Reviewed EMR and team rounds for status updates. Met with pt at bedside to introduce self and role, pt was found to be alert/oriented, and sitting upright in bed, expressing readiness to d/c home. Pt resides independently with her spouse and children in their own home in [place]. She did drive herself to the ED, and is planning to drive herself home once the d/c order is in, anticipated later this afternoon. Payor: Jame Vazquez PCP- [facility] Pt is a 43 year-old F who presented to the ED yesterday evening after she had a chest CT as an OP and was found to have bilateral PE's. She is a runner, and shared that she has been experiencing worsening shortness of breath with exertion over the last 2-weeks. Pt was given IV Lovenox for anticoagulation. She was also noted on CT imaging to have some R-sided heart strain. Cardiology was consulted and recommended OP f/u post-discharge. Today she is feeling much improved, and declines any d/c assistance or resource needs at this time. Discharge Planning/Care Management CM Discharge Assessment Start: 05/14/24 15:20 Freq: Status: Discharge Protocol: Document 05/14/24 15:20 DPL (Rec: 05/14/24 15:22 DPL [id number]) Discharge Planning Assessment Assigned Hairspring Assembler ROBERTO Staton Advance Directives? No History Provided By Patient,Significant Other Has Patient been admitted in last 30 No days? Prior Living Arrangements House Household Members spouse Type of transporation used prior to Drives own vehicle admit Independent with ADL's Yes Is patient alert and oriented? Yes Comment N/A Caregiver for Another Yes: children Comment No identified home d/c needs at this time. Barriers to Discharge No Discharge Plan Home Referrals Initiated None needed Whiteboard Updated in Patient Room with Yes name and ext. # of Hairspring Assembler Review Status In Process Please Provide Date Initial DC 05/14/24 Assessment Was Performed
[2024-05-15 03:36] LABS: Homocysteine 10.2 umol/L (0.0-14.5)
[2024-05-16 14:09] LABS: Protein C-Functional 89 % (73-180); Protein S-Functional 106 % (63-140)
== END 2024-05-14 15:21 | disposition home or self-care (01) ==
LOC: ED 19:41 → AC 21:45
PROVIDERS: Emergency Medicine; Admitting Provider Internal Medicine; Emergency Provider Emergency Medicine; Referring Provider Emergency Medicine; Visit Provider Internal Medicine
DX: I26.99 Other pulmonary embolism without acute cor pulmonale (principal); G43.909 Migraine, unspecified, not intractable, without status migrainosus; E28.2 Polycystic ovarian syndrome; Z79.3 Long term (current) use of hormonal contraceptives; R06.09 Other forms of dyspnea
CPT/HCPCS: 36415; 71275; 80048; 80053; 81241; 82550; 83090; 83690; 83880; 84484; 85025; 85300; 85303; 85306; 85610; 85730; 93005; 93010; 93306; 93970; 96372; 99284; 99291; G0378; J1650

== ENCOUNTER → 2024-06-17 10:52 | Outpatient (CLI) | payer OTHER, SELFPAY ==
[2024-05-15 09:56] VITALS: BMI 25.8
--- NOTE | 2024-06-17 10:55 | DI.RAD.S_ITS ---
PROCEDURE: XR ANKLE RT MIN 3V INDICATIONS: Right ankle injury TECHNIQUE: 3 views of the ankle were acquired. COMPARISON: None. FINDINGS: Bones: Suspect tiny avulsion fracture of the lateral malleolus. No medial or posterior malleolus fracture. Soft tissues: Large tibiotalar joint effusion. Achilles tendon appears normal. Cydney swelling present. IMPRESSION: Suspect tiny avulsion fracture of the lateral malleolus. Correlate with point tenderness. Dictated by: Adria Madison M.D. on 06/17/2024 at 12:01 Approved by: Adria Madison M.D. on 06/17/2024 at 12:02
== END ==
LOC: RAD 10:54
PROVIDERS: PCP Family Medicine; Referring Provider Registered Nurse; Visit Provider Registered Nurse
DX: M25.571 Pain in right ankle and joints of right foot (principal); M25.471 Effusion, right ankle
CPT/HCPCS: 73610

== ENCOUNTER → 2024-08-09 09:23 | Outpatient (CLI) | payer OTHER, SELFPAY ==
[2024-05-15 09:56] VITALS: BMI 25.8
--- NOTE | 2024-08-09 09:23 | DI.ECHO.S_ITS ---
[facility]+ [facility] : : [address] : : [place] : : [id number] : : Phone: [phone] Echocardiogram Report + + :Name: AARON SIMMONS Study Date: 08/09/2024 Height: 65 in : :Hospital ReadingLocation: Weight: 160 lb : : Gender: Female BSA: 1.8 m2 : :: 1980 Age: 44 yrs BP: 107/84 mmHg: :Reason For Study: FOLLOW UP HEART STRAIN, TWO PES : :Ordering Physician: MICHELLE, : :GABRIELA Performed By: Jh Manuel : :Referring: GABRIELA MARTINEZ : + + Interpretation Summary The ejection fraction is estimated to be 55-60%. Diastolic parameters suggest probable normal left ventricular diastolic function and normal filling pressures. The left atrium is borderline dilated. The right ventricle is borderline dilated. The right ventricular systolic function is normal. There is mild mitral regurgitation. There is mild tricuspid regurgitation. Pulmonary artery pressures cannot be estimated because of the lack of a measurable TR jet velocity but the IVC suggests a CVP of around 8 mmHg. Compared to the prior study dated 05/14/2024, no significant change. Procedure: A two-dimensional transthoracic echocardiogram with color flow and Doppler was performed. The study quality was technically adequate. Comparison is made with the echocardiogram of 05/14/2024. The patient was in sinus rhythm with heart rates between 68-83 bpm during the exam. Left Ventricle: The left ventricle is normal in size and wall thickness. The ejection fraction is estimated to be 55-60%. Diastolic parameters suggest probable normal left ventricular diastolic function and normal filling pressures. Right Ventricle: The right ventricle is borderline dilated. The right ventricular systolic function is normal. Atria: The left atrium is borderline dilated. Right atrial size is normal. There is no Doppler evidence for an interatrial shunt. Mitral Valve: The mitral valve is normal. There is mild mitral regurgitation. There are multiple regurgitant jets present. Aortic Valve: The aortic valve is trileaflet. The aortic valve opens well. There is no aortic valve stenosis. No aortic regurgitation is present. Tricuspid Valve: The tricuspid valve is normal. There is mild tricuspid regurgitation. Pulmonary artery pressures cannot be estimated because of the lack of a measurable TR jet velocity but the IVC suggests a CVP of around 8 mmHg. Pulmonic Valve: The pulmonic valve leaflets are thin and pliable; valve motion is normal. There is trace pulmonic regurgitation. Great Vessels: The aortic root is normal size. The dimensions of the ascending aorta are normal. The IVC is of normal diameter and collapses less than 50% with a sniff. This suggests a right atrial pressure of 8 mm Hg. Pericardium/ Pleura There is no pericardial effusion. There is no pleural effusion. MMode/2D Measurements & Calculations LVIDd: 5.1 cm LVOT diam: 2.4 cm LVIDs: 3.4 cm Ao root diam: 3.6 cm FS: 34.9 % asc Aorta Diam: 3.1 cm EPSS: 0.46 cm IVSd: 0.86 cm LVPWd: 0.86 cm LV diaz. diameter/BSA (cm/m^2): 2.9 LV sys. diameter/BSA (cm/m^2): 1.9 LA A2 area: 20.2 cm2 RA long axis: 5.1 cm LA A4 area: 20.0 cm2 RA area: 18.3 cm2 LA length (vol): 5.2 cm RA vol: 55.8 ml LA vol: 66.4 ml RA : 31.0 ml/m2 LA vol index: 36.9 ml/m2 IVC diam: 1.9 cm RVD1 (basal): 4.0 cm TAPSE: 2.5 cm Doppler Measurements & Calculations Ao V2 max: 101.0 cm/sec LVOT Max Lucas: 87.5 cm/sec Ao V2 mean: 73.9 cm/sec LV V1 max P.1 mmHg Ao max P.1 mmHg LV V1 VTI: 21.2 cm Ao mean P.4 mmHg MACRINA(I,D): 4.3 cm2 Ao V2 VTI: 22.8 cm MACRINA(V,D): 4.0 cm2 sev ratio: 0.93 MACRINA indexed to BSA (cm^2/m^2): 2.4 MV E max lucas: 83.9 cm/sec TR max lucas: 229.4 cm/sec MV A max lucas: 46.0 cm/sec TR max P.0 mmHg MV E/A: 1.8 PA V2 max: 83.7 cm/sec Med Peak E' Lucas: 7.7 cm/sec PA V2 mean: 62.9 cm/sec E/E' med: 10.9 PA mean P.7 mmHg Lat Peak E' Lucas: 16.7 cm/sec PA pr(Accel): 22.5 mmHg E/E' lat: 5.0 E/e' average: 8.0 MV dec time: 0.11 sec [facility] 97.9 ml Reading Physician:06:49 PM
== END ==
PROVIDERS: PCP Family Medicine; Referring Provider Family Medicine; Visit Provider Family Medicine
DX: I26.99 Other pulmonary embolism without acute cor pulmonale (principal); I08.1 Rheumatic disorders of both mitral and tricuspid valves
CPT/HCPCS: 93306

== ENCOUNTER → 2025-08-15 09:17 | Outpatient (CLI) | payer OTHER, SELFPAY ==
[2024-05-15 09:56] VITALS: BMI 25.8
[2025-08-15 10:15] LABS: Add Manual Diff / Slide Review NO; Hematocrit 40.1 % (36-46); Hemoglobin 13.9 g/dL (12.0-16.0); Lymphocytes Absolute Auto 1200 /uL (1100-4500); Mean Corpuscular HGB Conc 34.6 % (30-36); Mean Corpuscular Hemoglobin 30.8 PG (26-34); Mean Corpuscular Volume 89.1 fL (80-100); Platelet Count 202 X10^3/uL (150-400)
[2025-08-15 10:34] LABS: Alanine Aminotransferase 18 IU/L (<35); Albumin 4.6 g/dL (3.5-5.0); Albumin Globulin Ratio 1.8 (1.0-2.8); Alkaline Phosphatase 57 U/L (38-126); Blood Urea Nitrogen 22 mg/dL (7-17); Calcium 9.5 mg/dL (8.4-10.2); Carbon Dioxide 23 mmol/L (22-32); Chloride 104 mmol/L (98-107); Estimated Glomerular Filt Rate > 60 mL/min (>60); Globulin 2.6 g/dL (1.7-4.1); Glucose 98 mg/dL (70-99); HEMOLYSIS < 15 (0-50); Potassium 4.3 mmol/L (3.4-5.1); Sodium 135 mmol/L (137-145); Total Protein 7.2 g/dL (6.3-8.2)
[2025-08-15 10:46] LABS: Hemoglobin A1C% w Est Avg Glu 5.1 % (4.0-6.0)
[2025-08-15 11:06] LABS: Ferritin 43 ng/mL (6-137)
[2025-08-15 11:13] LABS: TSH w/ Reflex to FT4 1.72 uIU/mL (0.47-4.68)
[2025-08-16 05:14] LABS: CRP, High Sensitivity 0.29 mg/L (0.00-3.00)
[2025-08-17 10:12] LABS: Insulin Level Total 8.2 uIU/mL (2.6-24.9)
== END ==
LOC: LAB 09:21
PROVIDERS: PCP Family Medicine; Referring Provider Family Medicine; Visit Provider Family Medicine
DX: R53.82 Chronic fatigue, unspecified (principal); E88.810 Metabolic syndrome; E66.9 Obesity, unspecified; E03.9 Hypothyroidism, unspecified; N95.1 Menopausal and female climacteric states; E28.2 Polycystic ovarian syndrome; E78.5 Hyperlipidemia, unspecified; E34.9 Endocrine disorder, unspecified; R53.83 Other fatigue
CPT/HCPCS: 36415; 80053; 82627; 82728; 83036; 83525; 84402; 84403; 84443; 85025; 86140

== ENCOUNTER → 2025-09-19 16:53 | Outpatient (CLI) | payer OTHER, SELFPAY ==
[2024-05-15 09:56] VITALS: BMI 25.8
--- NOTE | 2025-09-19 16:54 | DI.MG.S_ITS ---
MM screening mammo BI: 09/19/2025. BI-RADS: 1 CLINICAL: 45-year old female for bilateral screening mammogram. Tyrer-Cuzick lifetime risk of 17.2%. No personal or first-degree family history of breast cancer. Current reported family history of breast cancer: maternal grandmother. PRIOR EXAMS 10/18/2023, 09/16/2022. MAMMOGRAPHY TECHNIQUE: 2D and 3D (tomosynthesis) digital mammographic views obtained, with additional images as needed for full coverage. Current study was also evaluated with a Computer Aided Detection (CAD) system. DENSITY C. The breasts are heterogeneously dense, which may obscure small masses. MAMMOGRAPHY FINDINGS Bilateral: No suspicious mass, asymmetry, microcalcification, or other abnormality seen. IMPRESSION: * No evidence of malignancy. RECOMMENDATIONS Bilateral * Annual screening mammography. OVERALL ASSESSMENT CATEGORY BI-RADS-1: Negative. The [employer] recommends annual screening mammography beginning at age 40 for women with average risk of breast cancer. ELECTRONICALLY SIGNED: Tootie Quick M.D. on 09/22/2025 at 05:28:27 PM PT Interpreting Station ID: [id number]
== END ==
PROVIDERS: PCP Family Medicine; Referring Provider Family Medicine; Visit Provider Family Medicine
DX: Z12.31 Encounter for screening mammogram for malignant neoplasm of breast (principal); R92.333 Mammographic heterogeneous density, bilateral breasts; Z80.3 Family history of malignant neoplasm of breast
CPT/HCPCS: 77063; 77067